=== PATIENT | female | born 1980 | race Caucasian/White ===

== ENCOUNTER 2019-01-16 09:29 | Inpatient (IN) | payer OTHER ==
[~2019-01-16] VITALS: Ht 160 cm; Wt 70.5 kg
[~2019-01-16 09:29] MED LIST: DOCU-131 PO; IBUP-1222 PO; OXYC-302 PO; PREN1TAB60 PO
[2019-01-16] MEDS ORDERED: PREN1TAB60 PO (10:26)
[2019-01-16] MEDS ORDERED: SODIUM CITRATE/CITRIC ACID 15 ML UDC PO ONE (10:30)
[2019-01-16] MEDS ORDERED: METOCLOPRAMIDE 5 MG/ML, 2ML IV ONE (10:30)
[2019-01-16] MEDS ORDERED: LACTATED RINGERS 1,000 ML IVBOLUS ONE (10:30)
[2019-01-16] MEDS ORDERED: METOCLOPRAMIDE 5 MG/ML, 2ML ONE (10:50)
[2019-01-16] MEDS ORDERED: SODIUM CITRATE/CITRIC ACID 15 ML UDC ONE (10:50)
[2019-01-16 10:55] LABS: BASOPHILS # (AUTO) 0.05 x10^3/uL (0-0.1); BASOPHILS % (AUTO) 1 % (0-1); EOSINOPHILS # (AUTO) 0.24 x10^3/uL (0-0.4); EOSINOPHILS % (AUTO) 3 % (1-7); LYMPHOCYTES # (AUTO) 2.14 x10^3/uL (1-3.4); LYMPHOCYTES % (AUTO) 22 % (22-44); MD NO; MEAN CORPUSCULAR HEMOGLOBIN 28.1 pg (27.0-34.8); MEAN CORPUSCULAR HGB CONC 33.3 g/dL (32.4-35.8); MEAN CORPUSCULAR VOLUME 84.4 fL (80-100); MEAN PLATELET VOLUME 10.2 fL (7.4-10.4); MONOCYTES # (AUTO) 0.68 x10^3/uL (0.2-0.8); MONOCYTES % (AUTO) 7 % (2-9); NEUTROPHILS # (AUTO) 6.76 x10^3/uL (1.8-6.8); NEUTROPHILS % (AUTO) 69 % (42-75); PLATELET COUNT 220 x10^3/uL (130-400); RED BLOOD COUNT 4.29 x10^6/uL (3.82-5.3); RED CELL DISTRIBUTION WIDTH 15.8 % (9.6-15.2)
[2019-01-16] MEDS ORDERED: NEWBORN KIT ONE (11:25)
[2019-01-16] MEDS ORDERED: ONDANSETRON 2MG/ML, 2ML IVPush PRN (11:30)
[2019-01-16] MEDS ORDERED: HYDROmorphone 2 MG/ML, 1ML IVPush PRN (11:30)
[2019-01-16] MEDS ORDERED: MEPERIDINE/PF 25MG/0.5ML IVPush PRN (11:30)
[2019-01-16] MEDS ORDERED: OXYcodone 5 MG/5 ML ORAL.SOL UDC PO PRN (11:30)
[2019-01-16] MEDS ORDERED: HYDROcodone/APAP 7.5-325MG/15ML UDC PO PRN (11:30)
[2019-01-16] MEDS ORDERED: hydrALAzine 20 MG/ML, 1ML IV PRN (11:30)
[2019-01-16] MEDS ORDERED: MIDAZOLAM 1 MG/ML, 2ML IV PRN (11:30)
[2019-01-16] MEDS ORDERED: LABETALOL 5MG/ML, 20ML IV PRN (11:30)
[2019-01-16] MEDS ORDERED: EPHEDRINE 50 MG/ML, 1ML IVPush PRN (11:30)
[2019-01-16] MEDS ORDERED: PROMETHAZINE 25 MG/ML, 1ML IV PRN (11:30)
[2019-01-16] MEDS ORDERED: ALBUTEROL SULFATE 2.5 MG/3 ML NPPB PRN (11:30)
[2019-01-16] MEDS ORDERED: FENTANYL PF 100 MCG/2ML IV PRN (11:30)
[2019-01-16] MEDS ORDERED: ONDANSETRON 2MG/ML, 2ML ONE (11:36)
[2019-01-16] MEDS ORDERED: DEXAMETHASONE 4 MG/ML, 1ML ONE (11:36)
[2019-01-16] MEDS ORDERED: PHENYLEPHRINE 10 MG/ML ONE (11:36)
[2019-01-16] MEDS ORDERED: OXYTOCIN 10 UNITS/ML, 1ML ONE (11:36)
[2019-01-16] MEDS ORDERED: CEFAZOLIN 1,000 MG ONE (11:36)
[2019-01-16] MEDS ORDERED: KETOROLAC 30 MG/1 ML ONE (11:36)
[2019-01-16] MEDS ORDERED: EPHEDRINE 50 MG/ML, 1ML ONE (11:36)
[2019-01-16] MEDS ORDERED: FENTANYL PF 100 MCG/2ML ONE (11:37)
[2019-01-16] MEDS ORDERED: HYDROmorphone 2 MG/ML, 1ML ONE (12:31)
[2019-01-16] MEDS: LACTATED RINGERS 1,000 ML IV SCH ×4 (12:51→22:51)
[2019-01-16] MEDS ORDERED: MISOPROSTOL 200 MCG TABLET PR PRN (13:00)
[2019-01-16] MEDS ORDERED: ONDANSETRON 2MG/ML, 2ML IV PRN (13:00)
[2019-01-16] MEDS: KETOROLAC 30 MG/1 ML IV SCH ×2 (13:00→19:46)
[2019-01-16] MEDS ORDERED: MORPHINE SULFATE 4 MG/ML, 1ML IVPush PRN (13:00)
[2019-01-16] MEDS ORDERED: OXYcodone IR 5MG TABLET PO PRN (13:00)
[2019-01-16] MEDS ORDERED: IBUPROFEN 600 MG TABLET PO PRN (13:00)
[2019-01-16] MEDS: OXYTOCIN 30U/ 0.9% NaCL 500ML 500 ML IV SCH ×2 (13:27→22:51)
[2019-01-16 15:10] VITALS: BP 115/78
[2019-01-16] MEDS: DOCUSATE 100 MG CAPSULE PO PRN (19:46)
[2019-01-16 20:04] VITALS: BP 120/78
[2019-01-16 21:41] LABS: MEAN CORPUSCULAR HEMOGLOBIN 27.3 pg (27.0-34.8); MEAN CORPUSCULAR HGB CONC 32.4 g/dL (32.4-35.8); MEAN CORPUSCULAR VOLUME 84.4 fL (80-100); MEAN PLATELET VOLUME 10.5 fL (7.4-10.4); PLATELET COUNT 229 x10^3/uL (130-400); RED BLOOD COUNT 4.05 x10^6/uL (3.82-5.3); RED CELL DISTRIBUTION WIDTH 15.7 % (9.6-15.2)
[2019-01-16 22:14] LABS: BASOPHILS # (AUTO) 0.06 x10^3/uL (0-0.1); BASOPHILS % (AUTO) 0 % (0-1); EOSINOPHILS % (AUTO) 0 % (1-7); LYMPHOCYTES # (AUTO) 1.47 x10^3/uL (1-3.4); LYMPHOCYTES % (AUTO) 9 % (22-44); MD SCAN; MONOCYTES # (AUTO) 0.64 x10^3/uL (0.2-0.8); MONOCYTES % (AUTO) 4 % (2-9); NEUTROPHILS # (AUTO) 14.43 x10^3/uL (1.8-6.8); NEUTROPHILS % (AUTO) 87 % (42-75)
[2019-01-17 00:05] VITALS: BP 112/73
[2019-01-17] MEDS: KETOROLAC 30 MG/1 ML IV SCH ×3 (01:28→13:25)
[2019-01-17 04:15] VITALS: BP 118/78
[2019-01-17] MEDS: OXYcodone/APAP 5/325MG TABLET PO PRN ×2 (04:21→20:47)
[2019-01-17] MEDS: LACTATED RINGERS 1,000 ML IV SCH (04:51)
[2019-01-17] MEDS: PRENATAL VIT/IRON/FA 1 EACH TABLET PO SCH (07:41)
[2019-01-17] MEDS: DOCUSATE 100 MG CAPSULE PO PRN ×2 (07:41→19:56)
[2019-01-17 07:50] VITALS: BP 116/81
[2019-01-17] MEDS ORDERED: IBUPROFEN 600 MG TABLET ONE (19:54)
[2019-01-17] MEDS: IBUPROFEN 600 MG TABLET PO PRN (19:56)
[2019-01-17 20:00] VITALS: BP 107/67
[2019-01-18] MEDS: OXYcodone/APAP 5/325MG TABLET PO PRN ×3 (05:03→16:57)
[2019-01-18] MEDS: IBUPROFEN 600 MG TABLET PO PRN ×3 (05:03→16:57)
[2019-01-18 08:25] VITALS: BP 112/75
[2019-01-18] MEDS: PRENATAL VIT/IRON/FA 1 EACH TABLET PO SCH (11:02)
[2019-01-18] MEDS: DOCUSATE 100 MG CAPSULE PO PRN (11:02)
[2019-01-18] MEDS ORDERED: IBUPROFEN 600 MG TABLET PO PRN (14:00)
[2019-01-18] MEDS ORDERED: IBUP-1222 PO (14:44)
[2019-01-18] MEDS ORDERED: OXYC-302 PO (14:44)
[2019-01-18] MEDS ORDERED: DIPH,PERTUSS(ACELL),TET VAC/PF NC IM-VACC ONE (16:30)
== END 2019-01-18 19:05 | disposition home or self-care (01) | DRG 788 ==
LOC: LDIP 10:11 → 2NW 14:59
PROVIDERS: ADMIT Obstetrics & Gynecology; ATTEND Obstetrics & Gynecology
PROC: 10D00Z1 Extraction of Products of Conception, Low, Open Approach (ICD-10-PCS; principal; 2019-01-18)
DX: O34.211 Maternal care for low transverse scar from previous cesarean delivery (principal); O69.81X0 Labor and delivery complicated by cord around neck, without compression, not applicable or unspecified; O99.344 Other mental disorders complicating childbirth; E78.00 Pure hypercholesterolemia, unspecified; F32.9 Major depressive disorder, single episode, unspecified; O99.284 Endocrine, nutritional and metabolic diseases complicating childbirth; Z3A.39 39 weeks gestation of pregnancy; Z37.0 Single live birth; Z83.3 Family history of diabetes mellitus
CPT/HCPCS: 36415; 85025; 86850; 86900; 90715; G0378; J0690; J1100; J1170; J1885; J2405; J3010; J2370; J2590; J2765; J7120